=== PATIENT | male | born 1980 | race Caucasian/White ===

== ENCOUNTER 2025-01-25 00:54 | Day surgery (SDC) | payer OTHER, SELFPAY ==
[2025-01-18 08:54] VITALS: BMI 31.5
--- OUTSIDE RECORDS SUMMARY | 2025-01-25 00:57 | XMS_ITS | Clinical Summary ---
Author Organization [facility] Address [address] [place] [id number] Care Team Providers Care Wig Maker Name Role Phone None, Provider MD Primary Care Provider Unavaila ble Allergies No known active allergies Medications albuterol sulfate HFA 108 (90 Base) MCG/ACT inhaler Inhale 2 puffs into the lungs every 6 (six) hours as needed for Wheezing. 10 g 09/08/2020 Active Active Problems Problem Noted Date Diagnosed Date TIA (transient ischemic attack) 11/07/2023 Family History Medical History Relation Comments Coronary artery disease Neg Hx Diabetes Neg Hx Social History Tobacco Use Types Packs/Day Years Used Date Smoking Tobacco: Never Smokeless Tobacco: Never Alcohol Use Standard Drinks/Week Comments Yes 0 (1 standard drink = 0.6 oz pur e alcohol) weekends Sex and Gender Information Value Date Recorded Sex Assigned at Not on file Legal Sex Male 8:16 PM CDT Gender Identity Not on file Sexual Orientation Not on file Last Filed Vital Signs Vital Sign Reading Time Taken Comments Blood Pressure 148/98 02/20/2024 1:52 PM SEED TESTER Pulse 88 02/20/2024 1:52 PM SEED TESTER Temperature 36.7 C (98 F) 02/20/2024 1:52 PM SEED TESTER Respiratory Rate 18 02/20/2024 1:52 PM SEED TESTER Oxygen Saturation 97% 02/20/2024 1:52 PM SEED TESTER Inhaled Oxygen Concentration - - Weight 88.5 kg (195 lb) 02/20/2024 12:03 PM SEED TESTER Height 180.3 cm (5' 11) 02/20/2024 12:03 PM SEED TESTER Body Mass Index 27.2 02/20/2024 12:03 PM SEED TESTER Plan of Treatment Health Maintenance Due Date Last Done Comments ASCVD Statin 1982 Annual Physical 1985 Hepatitis C 02/03/2000 HPV Vaccines (1 - 3-dose SCDM series) 2009 ASCVD LDL 11/07/2024 11/08/2023 COVID-19 Vaccine (3 - season) 2024 06/15/2020, 05/18/2020 Influenza Adult (#1) 2025 03/26/2023, 03/10/2022, 02/14/2021, Additional history exists DTaP, Tdap and Td Vaccines (3 - Td or Tdap) 06/25/2026 06/25/2016, 06/28/2011, 01/29/2002 Hepatitis A Vaccines Aged Out 02/10/2003, 03/06/2002, 02/05/2002 No longer eligible based on patient's age to complete this topic Hepatitis B Vaccines Completed 02/10/2003, 03/06/2002, 02/05/2002 Meningococcal Vaccine Aged Out 05/10/2015 , 03/21/2010, 01/29/2002 No longer eligible based on patient's age to complete this topic Meningococcal B Vaccine Aged Out No l onger eligible based on patient's age to complete this topic Pneumococcal Vaccine: Pediatrics (0 to 5 Years) and At-Risk Patients (6 to 49 Years) Aged Out No longer eligible based on patient's age to complete this topic RSV Immunizations Under 20 Months Aged Out No longer eligible based on patient's age to complete this topic Procedures Procedure Name Priority Date/Time Associated Diagnosis Comments LIPID PANEL Routine 11/08/2023 5:30 AM CDT from Last 3 Months or Most Recently Relevant to Health Maintenance Results * LIPID PANEL (11/08/2023 5:30 AM CDT) CHOLESTEROL 157 <200 MG/DL 11/08/2023 6:44 AM CDT [facility] TRIGLYCERIDES 104 <150 MG/DL 11/08/2023 6:44 AM CDT [facility] HDL 54 >40.0 MG/DL 11/08/2023 6:44 AM CDT [facility] LDL (CALCULATED) 82 <100 MG/DL 11/08/19 6:44 AM CDT [facility] NON HDL CHOLESTEROL 103 <130 MG/DL 11/07 6:44 AM CDT [facility] CHOL/HDL RATIO 2.9 0.0 - 4.5 11/08/2023 6:44 AM CDT [facility] VLDL CALCULATION 21 5 - 55 MG/DL 11/08/2023 6:44 AM CDT [facility] LIPID INTERPRETATION 11/08/2023 6:44 AM CDT [facility] Comment: [facility] CONCENSUS REPORT RECOMMENDATIONS: ADULT CHILD LOW RISK: CHOLESTEROL <200 <170 TRIGLYCERIDE <150 --- HDL >=60 --- LDL <100 <110 BORDERLINE: CHOLESTEROL 200-239 170-199 TRIGLYCERIDE 150-199 --- HDL 40-59 --- LDL 100-159 110-129 HIGH RISK: CHOLESTEROL >=240 >=200 TRIGLYCERIDE >=200 --- HDL <40 --- LDL >=160 >=130 11/08/2023 5:30 AM CDT Aster Che MD LABORATORY Final Re sult [facility] [address] [place] [address], from Last 3 Months or Most Recently Relevant to Health Maintenance Insurance [facility] Advance Directives * Full Code (Latest Code Status on File) Date Activated Date Inactivated Comments 11/07/2023 11:12 PM 11/08/2023 2:02 PM Care Teams Wig Maker Relationship Specialty Start Date End Date None, Provider, PCP - General UNKNOWN PHYSICIAN SPECIALTY 02/20/24
[2025-01-25 10:41] VITALS: BP 170/118; PULSE 105; RESP 20; TEMP 36.7; O2SAT 100
[2025-01-25] MEDS: LACTATED RINGERS 1,000 ML 150 ML IV CONT (10:50)
[2025-01-25 10:53] VITALS: BP 163/101; PULSE 86
--- NOTE | 2025-01-25 11:18 | PM.HPGS ---
History of Present Illness History of Present Illness Consent: Risks, benefits, and alternatives have been discussed and questions answered. Patient agrees to proceed with procedure. Chief complaint: Gastro-esophageal reflux disease without esophagit Narrative: Sebastian Greenwood is a 44 year old male here for first egd, gerd for years on ppi daily Review of Systems Review of Systems: All systems reviewed & are unremarkable except as noted in HPI and below PMFSH Past Medical History Medical History (Updated 12/07/24 @ 10:31 by Prisca Guo, RILEY) Seasonal allergies Vasectomy planned History of hypertension Social History Social History Smoking status: Former smoker Alcohol intake: current Drinks per week: 4 Substance use: never Substance use type: does not use Living arrangements: with family Spiritual care concerns: No Meds Home Medications and Allergies Home Medications ?Medication ?Instructions ?Recorded ?Confirmed ?Type fexofenadine 60 mg tablet (Ida 60 mg PO Q12H 12/07/24 01/25/25 History Allergy) fluticasone propionate 50 1 spray intranasal DAILY 12/07/24 01/25/25 History mcg/actuation nasal spray,suspension (Flonase Allergy Relief) ketoconazole 2 % topical cream 1 applic topical .PRN 12/07/24 01/25/25 History lisinopril 30 mg tablet 30 mg PO DAILY 12/07/24 01/25/25 History omeprazole 20 mg capsule,delayed 20 mg PO DAILY 12/07/24 01/25/25 History release Allergies Allergy/AdvReac Type Severity Reaction Status Date / Time No Known Allergies Allergy Verified 01/25/25 10:39 Vital Signs Vital Signs - 24 hr 01/25/25 10:41 01/25/25 10:53 Temperature 98.1 F Pulse Rate 105 H 86 Respiratory Rate 20 Blood Pressure 170/118 H 163/101 H Pulse Oximetry 100 Oxygen Delivery Room Air Exam Const: General: comfortable and no acute distress HENMT: Face/Nose/Sinus: Normal nares present Eyes: General: appearance normal, both eyes and all related structures Resp: Auscultation: clear to auscultation bilaterally Cardio: Rate: regular rate Rhythm: regular rhythm GI: Inspection: non-distended GI Palp: Yes Soft to palpation Skin: General skin exam: normal color Extrem: General: normal to inspection Psych: Mental Status: mental status grossly normal Assessment and Plan Assessment and plan (1) GERD (gastroesophageal reflux disease): Qualifiers: Esophagitis presence: esophagitis presence not specified Qualified Code(s): K21.9 - Gastro-esophageal reflux disease without esophagitis Code(s): K21.9 - Gastro-esophageal reflux disease without esophagitis Status: Acute Assessment and Plan: egd with bx
--- NOTE | 2025-01-25 11:21 | WPDANESEPPF ---
Anes - Initial Pre Proc Eval Procedure: Operation Date: 01/25/25 12:30 Proposed Procedures p Esophagogastroduodenoscopy - Pedro Elliott MD Date/Time: 01/25/25 11:21 Surgeon: Pedro Elliott MD Pre Op Diagnosis: Gastro-esophageal reflux disease without esophagit Patient Data Age: 44 Gender: M Height: 1.8 m Weight: 109.8 kg Last Vital Signs Temp 98.1 F 01/25/25 10:41 Pulse 86 01/25/25 10:53 Resp 20 01/25/25 10:41 BP 163/101 H 01/25/25 10:53 Pulse Ox 100 01/25/25 10:41 O2 Del Method Room Air 01/25/25 10:41 Allergies Allergy/AdvReac Type Severity Reaction Status Date / Time No Known Allergies Allergy Verified 01/25/25 10:39 Home Medications ?Medication ?Instructions ?Recorded ?Confirmed ?Type fexofenadine 60 mg tablet (Ida 60 mg PO Q12H 12/07/24 01/25/25 History Allergy) fluticasone propionate 50 1 spray intranasal DAILY 12/07/24 01/25/25 History mcg/actuation nasal spray,suspension (Flonase Allergy Relief) ketoconazole 2 % topical cream 1 applic topical .PRN 12/07/24 01/25/25 History lisinopril 30 mg tablet 30 mg PO DAILY 12/07/24 01/25/25 History omeprazole 20 mg capsule,delayed 20 mg PO DAILY 12/07/24 01/25/25 History release Patient hx anesthesia problems: none Family hx anesthesia problems: none Results Review: All pre-operative results and documents have been reviewed as part of the pre-operative evaluation. [facility] Past Medical History Medical History Hypertension GERD (gastroesophageal reflux disease) Overweight (BMI 25.0-29.9) Seasonal allergies Vasectomy planned History of hypertension Social History Social History Smoking status: Former smoker Alcohol intake: current Drinks per week: 4 Substance use: never Substance use type: does not use Living arrangements: with family Spiritual care concerns: No Anes - Eval Final PreProcedure Day of Procedure 01/25/25 11:21 Patient weight: overweight Heart: regular rate and rhythm Lungs: clear to auscultation Airway: Mallampati scale class II Neurological: alert and oriented Last oral intake: >/= 8 hours ASA classification: II Emergent: no Anesthetic plan: proceed Anesthesia type and monitoring: general GIVS and standard monitoring Results Review: All pre-operative results and documents have been reviewed as part of the pre-operative evaluation. Informed Consent: The patient's anesthetic plan and its attendant risks and benefits were discussed with the patient/family/POA. Questions were solicited and answers provided to the satisfaction of the patient/family/POA.
--- NOTE | 2025-01-25 11:27 | S_PTH ---
PATIENT: Sebatsian Greenwood LOC: [facility] Bell#:[id number] AGE/SX: 44/M ROOM: RE01/25/[address]: Pedro Elliott MD : 1980 BED: DIS: 01/25/2025 SPEC #: [id number] RECD: 01/25/25 12:41 STATUS: CYNTHIA REQ #: [id number] SANDY: 01/25/25 11:[address]: Pedro Elliott DEPT: [facility] Surgical RECD BY: Heena Laughlin ENTERED: 01/25/25 12:41 SP TYPE: Surgical OTHR DR: MICHELLE [facility] Tissues: A - Gastric Biopsy B - Esophageal Biopsy Procedures: Hematoxylin and Eosin Stain Gross and Microscopic Level 4
[2025-01-25 11:35] VITALS: BP 134/93; PULSE 80; O2SAT 100
[2025-01-25 11:45] VITALS: BP 130/95; PULSE 73; O2SAT 100
[2025-01-25 11:55] VITALS: BP 144/106; PULSE 82; O2SAT 100
== END 2025-01-25 12:06 | disposition home or self-care (01) ==
PROVIDERS: Referring Provider Nurse Practitioner; Visit Provider Internal Medicine Gastroenterology
PROC: 0DJ08ZZ Inspection of Upper Intestinal Tract, Via Natural or Artificial Opening Endoscopic (ICD-10-PCS; CPT 43239; principal; 2025-01-25 12:30)
DX: K21.9 Gastro-esophageal reflux disease without esophagitis (principal); K22.89 Other specified disease of esophagus; I10 Essential (primary) hypertension; K44.9 Diaphragmatic hernia without obstruction or gangrene; Z87.891 Personal history of nicotine dependence
CPT/HCPCS: 43239; 88305; J2003; J2704; J7120